=== PATIENT | female | born 1965 ===

== ENCOUNTER 2017-03-08 08:59 | Emergency (ER) | payer MEDICAID ==
[2017-03-08 09:24] VITALS: BP 185/94; PULSE 72; RESP 15; TEMP 98; O2SAT 98
[2017-03-08] MEDS ORDERED: Naproxen 550 mg Tab PO STA (09:46)
[2017-03-08] MEDS ORDERED: Naproxen 550 mg Tab PO ONE (10:01)
--- NOTE | 2017-03-08 10:03 | C.PDOC ---
Time Seen by Provider: 03/08/17 09:09 Chief Complaint (Nursing): Lower Extremity Problem/Injury Past Medical History Vital Signs: Last Vital Signs Temp 98.0 F 03/08/17 09:20 Pulse 72 03/08/17 09:20 Resp 15 03/08/17 09:20 BP 185/94 H 03/08/17 09:20 Pulse Ox 98 03/08/17 09:20 - Medical History PMH: Anxiety, Back Problems, Depression, HTN, Hyperthyroidism, Hypothyroidism, Seizures Surgical History: Tonsillectomy Family History: States: Unknown Family Hx - Social History Hx Tobacco Use: No Hx Alcohol Use: No Hx Substance Use: No - Immunization History Hx Tetanus Toxoid Vaccination: No Hx Influenza Vaccination: No Hx Pneumococcal Vaccination: No ED Course And Treatment O2 Sat by Pulse Oximetry: 98 Disposition Counseled Patient/Family Regarding: Studies Performed, Diagnosis, Need For Followup, Rx Given - Disposition Referrals: Raoul Pendleton MD [Staff Provider] - Disposition: HOME/ ROUTINE Disposition Time: 10:05 Condition: STABLE Additional Instructions: FOLLOW UP WITH ORTHOPEDICS WITHIN 1 WEEK USE MEDICATIONS DIRECTED RETURN TO ER IF SYMPTOMS WORSEN Prescriptions: Acetaminophen with Codeine [Tylenol with Codeine #3 Tablet] 1 each PO Q6 PRN # 12 tablet PRN Reason: pain Naproxen [Naprosyn] 1 tab PO BID PRN #25 tab PRN Reason: Pain Instructions: Knee Pain (ED), Osteoarthritis (ED) Forms: [facility] (Persian) Print Language: TANZANIAN - POA Present On Arrival: None - Clinical Impression Clinical Impression: Arthritis of left knee, Left knee pain
--- NOTE | 2017-03-08 10:06 | C.PDOC ---
History Of Present Illness <Cherri Whiting - Last Filed: 03/08/17 13:38> <Marifer Gregg - Last Filed: 03/11/17 09:46> 51 year old female with PMHx significant for HTN, DM, degenerative arthritis of the knees and hyperthyroidism presents with complaints of achy sharp left knee pain that began since Wednesday over the weekend. She rates the pain over a 10/ 10. She states that she has tried Motrin and Tylenol with minimal relief. Walking exacerbates the symptoms to the point of which she is now limping when she ambulates. (Cherri Whiting) History Per: Patient History/Exam Limitations: no limitations, physical impairment Onset/Duration Of Symptoms: Days, Worse Since Current Symptoms Are (Timing): Still Present Severity: Moderate Pain Scale Rating Of: 10 Additional History Per: Patient - Hip Currently Unable To: Bear Weight - Knee Description Of Injury: Other (chronic knee pain) Currently Unable To: Bear Weight Alleviating Factor(s): OTC Pain Medication (minimal relief) <Cherri Whiting - Last Filed: 03/08/17 13:38> <Marifer Gregg - Last Filed: 03/11/17 09:46> Time Seen by Provider: 03/08/17 09:09 Chief Complaint (Nursing): Lower Extremity Problem/Injury Past Medical History - Medical History PMH: Anxiety, Back Problems, Depression, HTN, Hyperthyroidism, Hypothyroidism, Seizures Surgical History: Tonsillectomy Family History: States: Unknown Family Hx - Social History Hx Tobacco Use: No Hx Alcohol Use: No Hx Substance Use: No - Immunization History Hx Tetanus Toxoid Vaccination: No Hx Influenza Vaccination: No Hx Pneumococcal Vaccination: No <Cherri Whiting - Last Filed: 03/08/17 13:38> Review Of Systems Constitutional: Negative for: Weakness Cardiovascular: Negative for: Chest Pain, Palpitations Gastrointestinal: Negative for: Nausea, Vomiting Musculoskeletal: Positive for: Back Pain, Leg Pain. Negative for: Neck Pain, Shoulder Pain, Arm Pain Skin: Negative for: Rash Neurological: Negative for: Altered Mental Status, Headache, Dizziness Psych: Positive for: Anxiety <Cherri Whiting - Last Filed: 03/08/17 13:38> Physical Exam - Physical Exam Appears: No Acute Distress Skin: Normal Color, Warm, No Pale, No Rash Head: Atraumatic, Normacephalic Eye(s): bilateral: Normal Inspection, PERRL, EOMI Nose: Normal Oral Mucosa: Moist, No Drooling Lips: Normal Appearing Teeth: Normal Dentition Throat: Normal Neck: Normal, Normal ROM Cardiovascular: Rhythm Regular Respiratory: Normal Breath Sounds Gastrointestinal/Abdominal: Soft Back: Normal Inspection, No Decreased ROM, Straight Leg Raising (unable to perform on left leg due to pain) Extremity: No Normal ROM Extremity: Left: Limited ROM To Joint, Painful To Bear Weight, Unable To Bear Weight, Right: Normal Color And Temperature, Normal ROM Pulses: Left Dorsalis Pedis: Normal, Right Dorsalis Pedis: Normal DTR: Knee (R): 2+, Knee (L): 2+, Ankle (R): 2+, Ankle (L): 2+ Neurological/Psych: Oriented x3, Normal Speech, Normal Cognition, Normal Cranial Nerves, Normal Motor, Normal Sensation, Normal Reflexes, Eyes Open With Command Pain Response: Withdraws With Pain Gait: Steady Extremity: Right: No Drift, Left: No Drift <Cherri Whiting - Last Filed: 03/08/17 13:38> ED Course And Treatment O2 Sat by Pulse Oximetry: 98 Progress Note: XRAY of the left knee- Prelim findings showed degenerative arthritic changes with mild tissue swelling appreciated. Patient to be provided with Naproxen for pain therapy, soft brace to stabilize knee, and crutches for stability with ambulation. <Cherri Whiting - Last Filed: 03/08/17 13:38> Pulse Ox Interpretation: Normal Progress Note: 10:10am- On reassessment, patient's pain has improved and she is able to ambulate in ED. Brace applied to left knee by technical intern, and cructhes offered to patient - she refused, states she has crutches at home. Rxs for pain medication given, and patient instructed to follow up with orthopedics within 1 week. She understands she should return to ED if symptoms worsen. Reassessment Condition: Improved <Marifer Gregg - Last Filed: 03/11/17 09:46> Disposition - Disposition Disposition Time: 10:11 <Cherri Whiting - Last Filed: 03/08/17 13:38> <Marifer Gregg - Last Filed: 03/11/17 09:46> - Disposition Referrals: Raoul Pendleton MD [Staff Provider] - Disposition: HOME/ ROUTINE Condition: STABLE Additional Instructions: FOLLOW UP WITH ORTHOPEDICS WITHIN 1 WEEK USE MEDICATIONS DIRECTED RETURN TO ER IF SYMPTOMS WORSEN Prescriptions: Acetaminophen with Codeine [Tylenol with Codeine #3 Tablet] 1 each PO Q6 PRN # 12 tablet PRN Reason: pain Naproxen [Naprosyn] 1 tab PO BID PRN #25 tab PRN Reason: Pain Instructions: Osteoarthritis (ED), Knee Pain (ED) Forms: [employer] [facility] (Divehi) Print Language: SERBIAN - Clinical Impression Clinical Impression: Arthritis of left knee, Left knee pain
--- NOTE | 2017-03-08 12:28 | RAD ---
PROCEDURE: Left Knee Radiographs. HISTORY: Pain. COMPARISON: None. FINDINGS: BONES: Normal. No fracture. JOINTS: Normal. No osteoarthritis. JOINT EFFUSION: A small suprapatellar bursa effusion is encountered. OTHER FINDINGS: None. IMPRESSION: No acute fracture or dislocation identified. A small suprapatellar bursa effusion is encountered.
== END 2017-03-08 10:15 | disposition home or self-care (01) ==
LOC: C.ER 08:59
DX: M13.862 Other specified arthritis, left knee (principal); M25.562 Pain in left knee

== ENCOUNTER 2017-04-08 16:03 | Emergency (ER) | payer MEDICAID ==
[2017-04-08 16:11] VITALS: O2SAT 98
[2017-04-08] MEDS ORDERED: Enoxaparin 100 mg Syringe SC STA (17:11)
--- NOTE | 2017-04-08 17:33 | C.PDOC ---
History Of Present Illness 51 year old female, whose PMHx includes Hypothyroidism, Seizures, HTN, Hypercholesterolemia, presents to the ED for evaluation of pain and swelling to her bilateral legs which began around 2 months ago. Patient states her legs have become more swollen and she notes she can't walk more than 2 blocks without becoming short of breath. Patient states she was referred by her PMD to reports to the ED for ultrasound study to rule out DVT. She denies fever, chills , chest pain. Patient reports her LMP was 10/5. Time Seen by Provider: 04/08/17 16:37 Chief Complaint (Nursing): Lower Extremity Problem/Injury History Per: Patient History/Exam Limitations: no limitations Onset/Duration Of Symptoms: Days Current Symptoms Are (Timing): Still Present - Knee Description Of Injury: denies: Fell Past Medical History Reviewed: Historical Data, Nursing Documentation, Vital Signs Vital Signs: Last Vital Signs Temp 98 F 04/08/17 16:07 Pulse 60 04/08/17 16:07 Resp 20 04/08/17 16:07 BP 162/82 H 04/08/17 16:07 Pulse Ox 98 04/08/17 18:20 - Medical History PMH: Anxiety, Back Problems, Depression, HTN, Hyperthyroidism, Hypothyroidism, Seizures Surgical History: Tonsillectomy Family History: States: Unknown Family Hx - Social History Hx Tobacco Use: No Hx Alcohol Use: No Hx Substance Use: No - Immunization History Hx Tetanus Toxoid Vaccination: No Hx Influenza Vaccination: No Hx Pneumococcal Vaccination: No Review Of Systems Constitutional: Negative for: Fever, Chills Cardiovascular: Negative for: Chest Pain Respiratory: Positive for: Shortness of Breath Musculoskeletal: Positive for: Leg Pain (to bilateral legs, with swelling ) Physical Exam - Physical Exam Appears: Non-toxic, No Acute Distress Skin: Normal Color, Warm, Dry Head: Atraumatic, Normacephalic Eye(s): bilateral: Normal Inspection Oral Mucosa: Moist Neck: Supple Chest: Symmetrical, No Deformity, No Tenderness Cardiovascular: Rhythm Regular, No Murmur Respiratory: Normal Breath Sounds, No Rales, No Rhonchi, No Wheezing Extremity: Normal ROM, Pedal Edema (+1, bilaterally ), Calf Tenderness (mild point tenderness bilaterally ), Capillary Refill (less than 2 seconds ), Other ( mild bilateral claudia's sign. no warmth or erythema to bilateral lower extremities ) Neurological/Psych: Oriented x3, Normal Speech, Normal Cognition Gait: Steady ED Course And Treatment O2 Sat by Pulse Oximetry: 98 (on RA) Pulse Ox Interpretation: Normal Medical Decision Making Medical Decision Making: Progress: Lovenox administered. pt advised no sono tech available at this hour. concern for dvt with prior ca hx. pt given a dose of lovenox and will return to ED tomorrow for vasuclar studies; pt understands. plan. Disposition - Disposition Disposition: HOME/ ROUTINE Disposition Time: 18:05 Condition: STABLE Additional Instructions: Please return to the ER tomorrow for vascular studies of both your legs to evaluate for DVT. Instructions: Leg Edema (ED) Forms: [facility] (Kazakh), General Discharge Instructions - Clinical Impression Clinical Impression: Leg edema - PA / TOWEL WEAVER / Resident Statement MD/DO has reviewed & agrees with the documentation as recorded. - Scribe Statement The provider has reviewed the documentation as recorded by the Scribe (France Shannon) All medical record entries made by the Scribe were at my direction and personally dictated by me. I have reviewed the chart and agree that the record accurately reflects my personal performance of the history, physical exam, medical decision making, and the department course for this patient. I have also personally directed, reviewed, and agree with the discharge instructions and disposition.
[2017-04-08] MEDS ORDERED: Enoxaparin 60 mg Syringe ONE (17:53)
[2017-04-08] MEDS ORDERED: Enoxaparin 30 mg Syringe ONE (17:53)
[2017-04-08 18:22] VITALS: BP 152/78; PULSE 66; RESP 18; TEMP 97.6
== END 2017-04-08 18:28 | disposition home or self-care (01) ==
LOC: C.ER 16:03
DX: R60.0 Localized edema (principal)
CPT/HCPCS: 96372; 99284; J1650

== ENCOUNTER 2017-04-09 08:54 | Emergency (ER) | payer MEDICAID ==
[2017-04-09 09:02] VITALS: RESP 18
--- NOTE | 2017-04-09 09:20 | C.PDOC ---
History Of Present Illness 51 y/o F presents with leg swelling x 4 months. Patient recently went to specialist for further evaluation of leg swelling and was instructed to obtain doppler to rule out DVT first. She came to this ED last night, department for doppler closed, treated with lovenox, and instructed to return this morning. Patient denies trauma, chest pain, dyspnea. Time Seen by Provider: 04/09/17 09:18 Chief Complaint (Nursing): Lower Extremity Problem/Injury Past Medical History Vital Signs: Last Vital Signs Temp 97.6 F 04/09/17 08:58 Pulse 59 L 04/09/17 08:58 Resp 18 04/09/17 08:58 BP 183/92 H 04/09/17 08:58 Pulse Ox 100 04/09/17 09:21 - Medical History PMH: Anxiety, Back Problems, Depression, HTN, Hyperthyroidism, Hypothyroidism, Seizures Surgical History: Tonsillectomy Family History: States: Unknown Family Hx - Social History Hx Tobacco Use: No Hx Alcohol Use: No Hx Substance Use: No - Immunization History Hx Tetanus Toxoid Vaccination: No Hx Influenza Vaccination: No Hx Pneumococcal Vaccination: No Review Of Systems Except As Marked, All Systems Reviewed And Found Negative. Constitutional: Negative for: Fever Cardiovascular: Negative for: Chest Pain Physical Exam - Physical Exam Appears: No Acute Distress Skin: Normal Color Head: Normacephalic Respiratory: No Accessory Muscle Use Extremity: No Tenderness, No Deformity, Swelling (bilateral lower legs, nonpitting) Pulses: Left Dorsalis Pedis: Normal, Right Dorsalis Pedis: Normal Neurological/Psych: Normal Motor, Normal Sensation Gait: Steady ED Course And Treatment O2 Sat by Pulse Oximetry: 100 Medical Decision Making Medical Decision Making: Sent for venous doppler. Negative for DVT. Will discharge patient, f/u with Dr. Guy, return to ED for worsening edema, pain, chest pain, dyspnea. Disposition - Disposition Referrals: Kyler Guy DO [Medical Doctor] - Disposition: HOME/ ROUTINE Disposition Time: 09:21 Condition: STABLE Instructions: Leg Edema (ED) Forms: [facility] (Taiwanese) - Clinical Impression Clinical Impression: Leg edema
[2017-04-09 12:21] VITALS: BP 165/78; PULSE 64; TEMP 98.1; O2SAT 98
--- NOTE | 2017-04-09 14:38 | VASCLAB ---
PROCEDURE: Lower Extremity Venous Duplex Exam. HISTORY: leg swelling, r/o DVT PRIORS: None. TECHNIQUE: Bilateral common femoral, femoral, popliteal and posterior tibial, peroneal and great saphenous veins were evaluated. Flow was assessed with color Doppler, compressibility, assessment of phasic flow and augmentation response. Report prepared by Enrico Bauer, LITO, RVT FINDINGS: RIGHT: 1. Common Femoral Vein: 1.1. Compressibility - Fully compressible: Thrombus - None : Flow - Phasic: Augmentation -Normal: Reflux - None. 2. Femoral Vein: 2.1. Compressibility - Fully compressible: Thrombus - None : Flow - Phasic: Augmentation -Normal: Reflux - None. 3. Popliteal Vein: 3.1. Compressibility - Fully compressible: Thrombus - None : Flow - Phasic: Augmentation -Normal: Reflux - None. 4. Posterior Tibial Vein: 4.1. Compressibility - Fully compressible: Thrombus - None: Flow - Phasic: Augmentation -Normal: Reflux - None. 5. Peroneal Vein: 5.1. Compressibility - Fully compressible: Thrombus - None: Flow - Phasic: Augmentation -Normal: Reflux - None. 6. Great Saphenous Vein: 6.1. Compressibility - Fully compressible: Thrombus - None: Flow - Phasic: Augmentation - Normal: Reflux - None. LEFT: 1. Common Femoral Vein: 1.1. Compressibility - Fully compressible: Thrombus - None: Flow - Phasic: Augmentation -Normal: Reflux - None. 2. Femoral Vein: 2.1. Compressibility - Fully compressible: Thrombus - None: Flow - Phasic: Augmentation -Normal: Reflux - None. 3. Popliteal Vein: 3.1. Compressibility - Fully compressible: Thrombus - None : Flow - Phasic: Augmentation -Normal: Reflux - None. 4. Posterior Tibial Vein: 4.1. Compressibility - Fully compressible: Thrombus - None: Flow - Phasic: Augmentation -Normal: Reflux - None. 5. Peroneal Vein: 5.1. Compressibility - Fully compressible: Thrombus - None: Flow - Phasic: Augmentation -Normal: Reflux - None. 6. Great Saphenous Vein: 6.1. Compressibility - Fully compressible: Thrombus - None: Flow - Phasic: Augmentation - Normal: Reflux - None. OTHER FINDINGS: Right: Anechoic non vascularlized masses noted behind both knees. IMPRESSION: Right: No evidence of deep or superficial vein thrombosis of the right lower extremity. Normal valve function noted of the right side. Left: No evidence of deep or superficial vein thrombosis of the left lower extremity. Normal valve function noted of the left side.
== END 2017-04-09 12:22 | disposition home or self-care (01) ==
LOC: C.ER 08:54
DX: R60.0 Localized edema (principal); I10 Essential (primary) hypertension

== ENCOUNTER 2018-09-28 08:57 | Emergency (ER) | payer MEDICAID ==
[2018-09-28 09:04] VITALS: RESP 18; O2SAT 100
[2018-09-28] MEDS ORDERED: Sodium Chloride 0.9% 1,000 ML IV ONE (09:21)
[2018-09-28] MEDS ORDERED: Sodium Chloride 0.9% 1,000 ML ONE (09:45)
[2018-09-28 10:00] LABS: BASO % 0.6 % (0.0-2.0); EOS # 0.1 K/uL (0.0-0.7); EOS % 1.9 % (0.0-4.0); HEMOGLOBIN 10.4 g/dL (11.0-16.0); LYMPH % 21.3 % (20.0-40.0); MEAN CELL VOLUME 82.2 fL (81.0-99.0); MEAN CORPUSCULAR HEMOGLOBIN 27.6 pg (27.0-31.0); MEAN CORPUSCULAR HGB CONC 33.6 g/dL (33.0-37.0); MEAN PLATELET VOLUME 8.6 fL (7.2-11.7); MONO # 0.7 K/uL (0.0-0.8); MONO % 14.3 % (0.0-10.0); NEUT # 2.9 K/uL (1.8-7.0); NEUT % 61.9 % (50.0-75.0); NRBC % 0.1 % (0.0-2.0); RBC 3.77 Mil/uL (3.80-5.20); RED CELL DISTRIBUTION WIDTH 16.3 % (11.5-14.5); WHITE BLOOD COUNT 4.6 K/uL (4.8-10.8)
[2018-09-28 10:05] LABS: SQUAMOUS EPITHIAL 46 /hpf (0-5); URINE BACTERIA RARE (<OCC)
[2018-09-28 10:12] LABS: URINE BILIRUBIN NEGATIVE (NEGATIVE); URINE BLOOD SMALL (NEGATIVE); URINE CLARITY Clear (Clear); URINE COLOR YELLOW (YELLOW); URINE GLUCOSE (UA) NEGATIVE (Normal)
[2018-09-28 10:13] LABS: ALB/GLOB RATIO 1.3 (1.0-2.1); ALBUMIN 4.1 g/dL (3.5-5.0); BLOOD UREA NITROGEN 14 mg/dL (7-17); CALCIUM 8.9 mg/dl (8.6-10.4); GFR NON-AFRICAN AMERICAN > 60; LIPASE 117 U/L (23-300); URINE PROTEIN 100 mg/dL (NEGATIVE); URINE UROBILINOGEN 0.2 mg/dL (0.2-1.0)
[2018-09-28 10:16] LABS: ALT/SGPT 7 U/L (9-52); AST/SGOT 25 U/L (14-36)
[2018-09-28 10:22] LABS: URINE LEUKOCYTE ESTERASE NEGATIVE Leu/uL (Negative)
[2018-09-28] MEDS ORDERED: Iodixanol 320 MG/ML 100 ML BOTTLE IV ONE (11:22)
--- NOTE | 2018-09-28 12:05 | CT ---
Date of service: 09/28/2018 PROCEDURE: CT Abdomen and Pelvis with contrast HISTORY: lower abd pain with n/v/d COMPARISON: None available. TECHNIQUE: Contrast dose: 100 mL Visipaque 320 IV Radiation dose: Total exam DLP = 899.16 mGy-cm. This CT exam was performed using one or more of the following dose reduction techniques: Automated exposure control, adjustment of the mA and/or kV according to patient size, and/or use of iterative reconstruction technique. FINDINGS: LOWER THORAX: No visible consolidation, pleural effusion, or pneumothorax. LIVER: Unremarkable. GALLBLADDER AND BILE DUCTS: Unremarkable. PANCREAS: Unremarkable. SPLEEN: Unremarkable. Calcifications near the splenic hilum may reflect calcified aneurysms. ADRENALS: Unremarkable. KIDNEYS AND URETERS: The kidneys enhance symmetrically. No hydronephrosis or obstructing calculus identified. VASCULATURE: No aortic aneurysm. No atherosclerotic calcification or mural plaque present. BOWEL: Stomach is nondistended. Lack of oral contrast limits evaluation for bowel pathology. Bowel loops appear within normal limits of caliber without evidence of obstruction. APPENDIX: No secondary signs of acute appendicitis. PERITONEUM: No significant free fluid. No definite free air. LYMPH NODES: No bulky adenopathy identified. BLADDER: Unremarkable. REPRODUCTIVE: The uterus is present. BONES: Degenerative changes. OTHER FINDINGS: Pelvic surgical clips. Tiny fat containing umbilical hernia. Small hiatal hernia. IMPRESSION: No acute findings identified to account for patient's reported symptoms. Additional findings as above.
[2018-09-28 13:09] VITALS: BP 152/87; PULSE 64; TEMP 97.8
--- NOTE | 2018-09-28 15:51 | C.PDOC ---
History Of Present Illness 53 y/o female presents to ED complaining of abdominal pain since yesterday, associated with nausea, multiple episodes of nonbloody diarrhea, and one episode of vomiting. Patient also complains of a subjective fever yesterday. He denies recent travel or sick contacts. Also denies dysuria or hematuria. Chief Complaint (Nursing): Abdominal Pain History Per: Patient History/Exam Limitations: no limitations Onset/Duration Of Symptoms: Days Current Symptoms Are (Timing): Still Present Past Medical History Reviewed: Historical Data, Nursing Documentation, Vital Signs Vital Signs: Last Vital Signs Temp 97.8 F 09/28/18 13:08 Pulse 64 09/28/18 13:08 Resp 18 09/28/18 13:08 BP 152/87 H 09/28/18 13:08 Pulse Ox 100 09/28/18 13:08 - Medical History PMH: Anxiety, Back Problems, Depression, HTN, Hyperthyroidism, Hypothyroidism, Seizures Surgical History: Tonsillectomy Family History: States: No Known Family Hx - Social History Hx Tobacco Use: No Hx Alcohol Use: No Hx Substance Use: No - Immunization History Hx Tetanus Toxoid Vaccination: No Hx Influenza Vaccination: No Hx Pneumococcal Vaccination: No Review Of Systems Except As Marked, All Systems Reviewed And Found Negative. Constitutional: Negative for: Fever, Chills Respiratory: Negative for: Shortness of Breath Gastrointestinal: Positive for: Vomiting, Abdominal Pain, Diarrhea Genitourinary: Negative for: Dysuria, Hematuria Musculoskeletal: Negative for: Back Pain Physical Exam - Physical Exam Appears: Non-toxic, No Acute Distress Skin: Warm, Dry Head: Atraumatic, Normacephalic Eye(s): bilateral: Normal Inspection Oral Mucosa: Moist Neck: Supple Cardiovascular: Rhythm Regular, No Murmur Respiratory: Normal Breath Sounds, No Rales, No Rhonchi, No Wheezing Gastrointestinal/Abdominal: Soft, Tenderness (lower abdominal tenderness) Extremity: Bilateral: Atraumatic, Normal ROM Neurological/Psych: Oriented x3, Normal Speech ED Course And Treatment - Laboratory Results Result Diagrams: 09/28/18 09:54 09/28/18 09:54 Lab Results: Total Bilirubin 0.6 mg/dL (0.2-1.3) 09/28/18 09:54 AST 25 U/L (14-36) 09/28/18 09:54 ALT 7 U/L (9-52) L D 09/28/18 09:54 Alkaline Phosphatase 57 U/L (38-126) 09/28/18 09:54 Total Protein 7.4 g/dL (6.3-8.3) 09/28/18 09:54 Albumin 4.1 g/dL (3.5-5.0) 09/28/18 09:54 Globulin 3.2 gm/dL (2.2-3.9) 09/28/18 09:54 Albumin/Globulin Ratio 1.3 (1.0-2.1) 09/28/18 09:54 Lipase 117 U/L (23-300) 09/28/18 09:54 Urine Color Yellow (YELLOW) 09/28/18 09:54 Urine Clarity Clear (Clear) 09/28/18 09:54 Urine pH 6.0 (5.0-8.0) 09/28/18 09:54 Ur Specific [place] 1.030 (1.003-1.030) 09/28/18 09:54 Urine Protein 100 mg/dL (NEGATIVE) 09/28/18 09:54 Urine Glucose (UA) Negative mg/dL (Normal) 09/28/18 09:54 Urine Ketones Negative mg/dL (NEGATIVE) 09/28/18 09:54 Urine Blood Small (NEGATIVE) 09/28/18 09:54 Urine Nitrate Negative (NEGATIVE) 09/28/18 09:54 Urine Bilirubin Negative (NEGATIVE) 09/28/18 09:54 Urine Urobilinogen 0.2 mg/dL (0.2-1.0) 09/28/18 09:54 Ur Leukocyte Esterase Negative Beatriz/uL (Negative) 09/28/18 09:54 Urine WBC (Auto) 2 /hpf (0-5) 09/28/18 09:54 Urine RBC (Auto) 4 /hpf (0-3) H 09/28/18 09:54 Ur Squamous Epith Cells 46 /hpf (0-5) H 09/28/18 09:54 Urine Bacteria Rare (<OCC) 09/28/18 09:54 O2 Sat by Pulse Oximetry: 100 (RA) Pulse Ox Interpretation: Normal - CT Scan/US Abd/Pel CT Other Rad Studies (CT/US): Read By Radiologist, Radiology Report Reviewed CT/US Interpretation: FINDINGS: LOWER THORAX: No visible consolidation, pleural effusion, or pneumothorax. LIVER: Unremarkable. GALLBLADDER AND BILE DUCTS: Unremarkable. PANCREAS: Unremarkable. SPLEEN: Unremarkable. Calcifications near the splenic hilum may reflect calcified aneurysms. A DRENALS: Unremarkable. KIDNEYS AND URETERS: The kidneys enhance symmetrically. No hydronephrosis or obstructing calculus identified. VASCULATURE: No aortic aneurysm. No atherosclerotic calcification or mural plaque present. BOWEL: Stomach is nondistended. Lack of oral contrast limits evaluation for bowel pathology. Bowel loops appear within normal limits of caliber without evidence of obstruction. APPENDIX: No secondary signs of acute appendicitis. PERITONEUM: No significant free fluid. No definite free air. LYMPH NODES: No bulky adenopathy identified. BLADDER: Unremarkable. REPRODUCTIVE: The uterus is present. BONES: Degenerative changes. OTHER FINDINGS: Pelvic surgical clips. Tiny fat containing umbilical hernia. Small hiatal hernia. IMPRESSION: No acute findings identified to account for patient's reported symptoms. Additional findings as above. Medical Decision Making Medical Decision Making: Plan: --Abd/Pel CT --Labs --Urine Culture --UA --Urine preg --Pepcid 20 mg IVP --IV fluids 1L --Zofran 4 mg IVP Disposition - Disposition Referrals: [facility] Adriana Lloyd, [Non-Staff] - Disposition: HOME/ ROUTINE Disposition Time: 12:45 Condition: IMPROVED Additional Instructions: ABE BOYD, thank you for letting us take care of you today. The emergency medical care you received today was directed at your acute symptoms. If you were prescribed any medication, please fill it and take as directed. It may take sev eral days for your symptoms to resolve. Return to the Emergency Department if your symptoms worsen, do not improve, or if you have any other problems. Please contact your doctor or call one of the physicians/clinics you have been referred to that are listed on the Patient Visit Information form that is included in your discharge packet. Bring any paperwork you were given at discharge with you along with any medications you are taking to your follow up visit. Our treatment cannot replace ongoing medical care by a primary care provider outside of the emergency department. Thank you for allowing the [facility] team to be part of your care today. Follow up with your primary care doctor this week for re-evaluation and further management. Prescriptions: Famotidine [Pepcid] 20 mg PO BID #20 tab Instructions: Gastritis (DC) Forms: [employer] (Vincentian) - Clinical Impression Clinical Impression: Viral gastroenteritis
== END 2018-09-28 13:21 | disposition home or self-care (01) ==
LOC: C.ER 08:57
DX: A08.4 Viral intestinal infection, unspecified (principal); I10 Essential (primary) hypertension
CPT/HCPCS: 74177; 80053; 81001; 81025; 83690; 85025; 87086; 96361; 96374; 96375; 99284; J2405; J7030; Q9967